=== PATIENT | male | born 1955 | race Caucasian/White ===

== ENCOUNTER 2016-07-21 05:30 | Emergency (ER) ==
[2016-07-21 05:42] VITALS: BP 152/108; TEMP 97; BMI 40.5
[2016-07-21] MEDS ORDERED: TRANDATE IVP STA (06:08)
[2016-07-21] MEDS ORDERED: ZOFRAN 4 MG/2 ML IVP STA (06:09)
[2016-07-21] MEDS ORDERED: MORPHINE 2 MG/ML SYRINGE IVP STA (06:09)
[2016-07-21 06:19] LABS: BASOPHILS # (AUTO) 0.1 K/uL (0-0.2); BASOPHILS % (AUTO) 0.9 % (0.0-3.0); EOSINOPHILS # (AUTO) 0.4 K/ul (0.0-0.7); EOSINOPHILS % (AUTO) 5.9 % (0.0-7.0); HEMATOCRIT 46.5 % (42.0-52.0); HEMOGLOBIN 15.3 g/dl (14.0-18.0); IMMATURE GRANULOCYTE % (AUTO) 0.3 % (0.0-5.0); LYMPHOCYTES # (AUTO) 1.4 K/uL (0.60-3.4); LYMPHOCYTES % (AUTO) 20.2 (10.0-50.0); MEAN CORPUSCULAR HEMOGLOBIN 27.1 pg (27.0-31.0); MEAN CORPUSCULAR HGB CONC 32.9 (31.8-35.4); MEAN CORPUSCULAR VOLUME 82.4 fl (80.0-94.0); MONOCYTES # (AUTO) 0.7 K/uL (0.4-2.0); MONOCYTES % (AUTO) 10.4 (0-10); NEUTROPHILS # (AUTO) 4.3 K/ul (2.0-6.9); NEUTROPHILS % (AUTO) 62.3; PLATELET COUNT 249 10^3/uL (140-440); RED BLOOD COUNT 5.64 10^6/ul (4.70-6.10); WHITE BLOOD COUNT 6.94 K/ul (4.2-10.2)
--- NOTE | 2016-07-21 06:53 | ED.PDOC ---
General Stated Complaint: my bp is up and i have a headache Time Seen by Physician: 05:35 Mode of Arrival: Walk-In Information Source: Patient Exam Limitations: No limitations Nursing and Triage Documentation Reviewed and Agree: Yes <VANESSA BANGURA - Last Filed: 07/21/16 06:53> <BC WHITE - Last Filed: 07/21/16 08:02> ED Provider: Dr. BC WHITE Chief Complaint: Headache Neurological Complaint Exam - Headache Complaint/Exam Onset: Gradual Duration: this am Symptoms Are: Still present Timing: Constant Episodes Lasting: Hours Worst Headache Ever: No Initial Severity: Mild Current Severity: Moderate Location: Diffuse Character: Reports: Dull, Throbbing, Typical headache Aggravating: Reports: Bright lights Alleviating: Reports: None Associated Signs and Symptoms: Reports: Nausea. Denies: Dizziness, Seizure, Vomiting, Sinus pressure, Fever, Neck pain, Neck stiffness, Decreased LOC, Visual changes Related Surgical History: Reports: None SAH Risk Factors: Reports: Hypertension Meningitis Risk Factors: Reports: None SDH Risk Factors: Reports: Male Temporal Arteritis Risk Factors: Reports: Normal Head CT Within Last 12 Months: No Fundoscopic Exam: Present: Normal Findings Papilledema Present: No Temporal Artery Tenderness: Present: None Sinus Tenderness: Present: None TMJ Tenderness: Present: None Glascow Coma Scale (see protocol): 15 Meningeal Signs Positive: No Pain on Passive Flexion-Positive Kernig's: No ROM Limited In: No Limitiations Focal Weakness: Present: None Focal Sensory Loss: Present: None Gait: Normal Nystagmus Present: No Gag Reflex Present: Yes [id number]: Normal Findings Romberg Test Positive: No Babinski Sign: Negative Right, Negative Left Heel to Toe Normal: Yes Differential Diagnoses: Migraine, Other <SVETAVANESSA - Last Filed: 07/21/16 06:53> Review of Systems - Review Of Systems Constitutional: Reports: No symptoms Eyes: Reports: No symptoms Ears, Nose, Mouth, Throat: Reports: No symptoms Respiratory: Reports: No symptoms Cardiac: Reports: No symptoms GI: Reports: No symptoms : Reports: No symptoms Musculoskeletal: Reports: No symptoms Skin: Reports: No symptoms Neurological: Reports: Headache Endocrine: Reports: No symptoms Hematologic/Lymphatic: Reports: No symptoms All Other Systems: Reviewed and Negative <VANESSA BANGURA - Last Filed: 07/21/16 06:53> Past Medical History - Past Medical History Previously Healthy: No Endocrine: Reports: DM 2 Cardiovascular: Reports: Hypertension, DVT Respiratory: Reports: None Hematological: Reports: None Gastrointestinal: Reports: None Genitourinary: Reports: None Neuro/Psych: Reports: None Musculoskeletal: Reports: None Cancer: Reports: None - Surgical History General Surgical History: Reports: Unknown - Family History Family History: Reports: Unknown - Social History Smoking Status: Never smoker Hx Substance Use: No Alcohol Screening: Occasionally - Immunizations Tetanus Shot up to Date: Yes <SVETAVANESSA - Last Filed: 07/21/16 06:53> Physical Exam - Physical Exam Appearance: Well-appearing, No pain distress, Well-nourished Pain Distress: Moderate Eyes: CHRISTIN, EOMI, Conjunctiva clear ENT: Ears normal, Nose normal, Oropharynx normal Neck: Supple Respiratory: Airway patent, Breath sounds clear, Breath sounds equal, Respirations nonlabored Cardiovascular: RRR, Pulses normal, No rub, No murmur GI/: Soft Musculoskeletal: Normal strength, ROM intact, No edema, No calf tenderness Skin: Warm, Dry, Normal color Neurological: Sensation intact, Motor intact, Reflexes intact, Cranial nerves intact, Alert, Oriented Psychiatric: Affect appropriate, Mood appropriate, Anxious <SVETAVANESSA - Last Filed: 07/21/16 06:53> Physician Notification - Case Discussed Physician Notified: dr white Time of Notification: 07:00 <SVETAVANESSA - Last Filed: 07/21/16 06:53> Critical Care Note - Critical Care Note Total Time (mins): 0 <BC WHITE - Last Filed: 07/21/16 08:02> Course - Course Hematology/Chemistry: 07/21/16 06:18 <VANESSA BANGURA - Last Filed: 07/21/16 06:53> - Course Hematology/Chemistry: 07/21/16 06:18 07/21/16 06:18 <BC WHITE - Last Filed: 07/21/16 08:02> - Course Orders, Labs, Meds: Lab Review 07/21/16 06:18 WBC 6.94 RBC 5.64 Hgb 15.3 Hct 46.5 MCV 82.4 MCH 27.1 MCHC 32.9 RDW Coeff of Che 13.6 Plt Count 249 Immature Gran % (Auto) 0.3 Neut % (Auto) 62.3 Lymph % (Auto) 20.2 Sierra % (Auto) 10.4 H Eos % (Auto) 5.9 Baso % (Auto) 0.9 Immature Gran # (Auto) 0.0 Neut # 4.3 Lymph # 1.4 Sierra # 0.7 Eos # 0.4 Baso # 0.1 Sodium 136 Potassium 4.7 Chloride 103 Carbon Dioxide 25 Anion Gap 12.7 BUN 26 H Creatinine 1.61 H Estimated GFR (MDRD) 44.00 BUN/Creatinine Ratio 16.14 Glucose 230 H Calcium 9.5 Total Bilirubin 0.37 AST 20 ALT 24 Alkaline Phosphatase 56 Total Creatine Kinase 76 Troponin I < 0.0100 Total Protein 6.7 Albumin 3.4 Globulin 3.3 Albumin/Globulin Ratio 1.03 TSH 2.135 Free T4 0.83 Orders Category Date Time Status EKG-(ED ONLY) Stat CARDIO 07/21/16 06:07 Completed Tip Cutter [ED MEDICAL DOCTOR MD APPLIED] .ONCE EMERGENCY 07/21/16 06:08 Active ED IV/MEDIPORT/POWERPORT .ONCE EMERGENCY 07/21/16 06:08 Active CBC W/ AUTO DIFF Stat LAB 07/21/16 06:18 Completed COMPREHENSIVE METABOLIC PANEL Stat LAB 07/21/16 06:18 Completed CREATINE KINASE Stat LAB 07/21/16 06:18 Completed FREE T4 (FREE THYROXINE) Stat LAB 07/21/16 06:18 Completed THYROID STIMULATING HORMONE Stat LAB 07/21/16 06:18 Completed TROPONIN I Stat LAB 07/21/16 06:18 Completed URINALYSIS C & S IF INDICATED Stat LAB 07/21/16 06:07 Uncollected 0.9 % Sodium Chloride [Saline Flush] MEDS 07/21/16 06:08 Active 1 syr IVF PRN PRN Labetalol HCl [Trandate] MEDS 07/21/16 06:08 Discontinued 20 mg IVP ONCE STA Morphine Sulfate [Morphine 2 mg/ml Syringe] MEDS 07/21/16 06:09 Discontinued 2 mg IVP ONCE STA Ondansetron HCl/Pf [Zofran 4 mg/2 ml] MEDS 07/21/16 06:09 Discontinued 4 mg IVP ONCE STA CT HEAD W/O CONTRAST Stat RADS 07/21/16 06:09 Completed Medications Generic Name Dose Route Start Last Admin Trade Name Karsonq PRN Reason Stop Dose Admin Sodium Chloride 1 syr 07/21/16 06:08 07/21/16 07:09 Saline Flush IVF 1 syr PRN PRN Administration To flush IV Discontinued Medications Generic Name Dose Route Start Last Admin Trade Name Stephanie PRN Reason Stop Dose Admin Labetalol HCl 20 mg 07/21/16 06:08 07/21/16 07:06 Trandate IVP 07/21/16 06:09 20 mg ONCE STA Administration Morphine Sulfate 2 mg 07/21/16 06:09 07/21/16 07:01 Morphine 2 Mg/Ml Syringe IVP 07/21/16 06:10 2 mg ONCE STA Administration Ondansetron HCl 4 mg 07/21/16 06:09 07/21/16 07:01 Zofran 4 Mg/2 Ml IVP 07/21/16 06:10 4 mg ONCE STA Administration Vital Signs: Temp Pulse Resp BP Pulse Ox 07/21/16 05:31 97 F L 92 H 18 152/108 H 97 Departure <VANESSA BANGURA - Last Filed: 07/21/16 06:53> - Departure Time of Disposition: 08:01 Pt referred to PMD for follow-up: No Disposition Discussed With: Patient <BC WHITE - Last Filed: 07/21/16 08:02> - Departure Disposition: HOME SELF-CARE Discharge Problem: Headache, Hypertension Instructions: Acute Headache (ED) Condition: Good Additional Instructions: Please call your Family Physician as soon as possible to schedule a follow-up appointment. Allergies/Adverse Reactions: Allergies No Known Allergies Allergy (Verified 07/21/16 05:42) Home Medications: Ambulatory Orders Insulin Lispro [Humalog] 1 units SUBCUT DIRECTED PRN 05/26/15 Apixaban [Eliquis] 5 mg PO BID 07/21/16 Carvedilol 6.25 mg PO BID 07/21/16 Gabapentin [Neurontin] 300 mg PO BID 07/21/16 Insulin Glargine,Hum.rec.anlog [Toujeo Solostar] 75 unit SQ BEDTIME 07/21/16 Losartan Potassium [Cozaar] 12.5 mg PO DAILY 07/21/16 Metformin HCl [Glucophage] 1,000 mg PO BID 07/21/16 Pantoprazole Sodium 40 mg PO DAILY 07/21/16 Pravastatin Sodium [Pravachol] 40 mg PO BEDTIME 07/21/16
--- NOTE | 2016-07-21 06:53 | CT ---
EXAM: CT brain without contrast HISTORY: Headache and hypertension TECHNIQUE: CT of the brain without intravenous contrast FINDINGS: There is no acute hemorrhage midline shift or mass effect. No hydrocephalus or abnormal extra-axial fluid collection. Generalized involutional atrophy, mild. Chronic microvascular change s of the white matter tracts, mild. No acute large vessel territorial infarct is seen. The bony cr anium appears normal. The visualized paranasal sinuses are clear. Soft tissues without significant a bnormality. IMPRESSION: 1. No acute intracranial abnormality. 2. Mild involutional atrophy and chronic microvascular changes of the white matter tracts.
[2016-07-21 07:01] LABS: ALANINE AMINOTRANSFERASE 24 U/L (12-78); ALBUMIN 3.4 g/dL (3.4-5.0); ALBUMIN/GLOBULIN RATIO 1.03; ALKALINE PHOSPHATASE 56 U/L (56-119); ANION GAP 12.7; ASPARTATE AMINO TRANSFERASE 20 U/L (15-37); BILIRUBIN,TOTAL 0.37 mg/dL (0.00-1.20); BLOOD UREA NITROGEN 26 mg/dL (7-18); BUN/CREATININE RATIO 16.14; CALCIUM 9.5 mg/dL (8.2-10.2); CARBON DIOXIDE 25 mmol/L (23-31); CHLORIDE 103 mmol/L (98-107); CREATINE KINASE 76 U/L; CREATININE 1.61 mg/dL (0.60-1.10); GLUCOSE 230 mg/dL (82-115); POTASSIUM 4.7 mmol/L (3.5-5.1); SODIUM 136 mmol/L (136-145); TOTAL PROTEIN 6.7 g/dL (5.8-8.1)
[2016-07-21 08:22] LABS: ADD URINE MICROSCOPIC YES; BILIRUBIN,URINE Negative (NEGATIVE); KETONES,URINE Trace (NEGATIVE); LEUKOCYTE ESTERASE ,URINE Negative (NEGATIVE); NITRITE,URINE Negative (NEGATIVE); PROTEIN,URINE 2+ (NEGATIVE); URINE, BLOOD Trace-intact (NEGATIVE)
== END 2016-07-21 09:13 | disposition home or self-care (01) ==
LOC: ED 05:30
DX: R51 Headache (principal); I10 Essential (primary) hypertension; N28.9 Disorder of kidney and ureter, unspecified; E11.9 Type 2 diabetes mellitus without complications; Z79.899 Other long term (current) drug therapy
CPT/HCPCS: 36415; 80053; 81001; 82550; 84439; 84443; 84484; 85025; 93005; 93010; 96374; 96375; 99283